=== PATIENT | female | born 1955 | race Two or more races ===

== ENCOUNTER 2020-06-23 13:37 | Outpatient (CLI) | payer OTHER | END 2020-06-23 14:44 | disposition home or self-care (01) | LOC: NUCLEAR 13:37 | PROVIDERS: ATTEND Family Medicine Adult Medicine | DX: M81.0 Age-related osteoporosis without current pathological fracture (principal); M36.8 Systemic disorders of connective tissue in other diseases classified elsewhere ==

== ENCOUNTER 2020-06-24 09:15 | Outpatient (CLI) | payer OTHER | END 2020-06-24 09:21 | disposition HB | LOC: MAMO-SONO 09:15 | PROVIDERS: ATTEND Family Medicine Adult Medicine | DX: N60.02 Solitary cyst of left breast (principal); Z12.31 Encounter for screening mammogram for malignant neoplasm of breast ==